=== PATIENT | male | born 1985 | race Two or more races ===

== ENCOUNTER 2024-12-28 23:07 | Inpatient (IN) | payer BC ==
[~2024-12-28] VITALS: Ht 180.3 cm; Wt 99.8 kg
--- NOTE | 2024-12-28 23:19 | NUR ---
SE RECIBE PTE EN AMBULANCIA ALERTA Y ORIENTADO X3 ACOMPANADO DE ROMERO ENRRIQUE. PTE REFIERE HAVEN SUFRIDO SINCOPE EN LA NOCHE DE HOY. SE ABDIRASHID S/V Y SE UBICA.
[2024-12-28] MEDS ORDERED: 0.9 % SODIUM CHLORIDE 1,000 ML IV ONE (23:30)
[2024-12-28] MEDS ORDERED: FAMOtidine 10 MG/ML (4ML VIAL) IV ONE (23:30)
--- NOTE | 2024-12-28 23:35 | NUR ---
SE REALIZA DXT. 161MG/DL 233
--- NOTE | 2024-12-29 00:45 | NUR ---
SE ORIENTA A PTE SOBRE TX MEDICO, ANDREAS REFIERE ENTENDER Y ACEPTAR. SE COLECTAN MUESTRAS DE LABORATORIO BAJO MEDIDAS ASEPTICAS. SE ADMINISTRAN MEDICAMENTOS EJ ORDEN MEDICA. PTE EN ESPERA DE XR Y CT.
[2024-12-29 00:48] LABS: BASO % 0.4 % (0.1-1.2); EOS # 0.03 (0.04-0.54); EOS % 0.4 % (0.7-7.0); LYMPH # 0.57 (1.18-3.74); LYMPH % 7.5 % (19.3-53.1); MEAN PLATELET VOLUME 11.60 fl (9.4-12.4); MONO # 0.50 (0.24-0.82); MONO % 6.6 % (4.7-12.5); NEUT # 6.46 (1.56-6.13); NEUT % 84.8 % (34.0-71.1); RED CELL DISTRIBUTION WIDTH 17.6 % (11.6-14.4)
[2024-12-29 01:24] LABS: COVID-19 AG NEGATIVE (NEGATIVE)
[2024-12-29 01:31] LABS: INR 1.28
[2024-12-29 01:35] LABS: URINE APPEARANCE Clear; URINE BILIRRUBIN Negative (NEGATIVE); URINE BLOOD Small; URINE COLOR Yellow; URINE GLUCOSE Negative (NEGATIVE); URINE KETONE Negative (NEGATIVE); URINE LEUKOCYTE Negative; URINE NITRATE Negative; URINE UROBILINOGEN 1.0 E.U./dl
[2024-12-29 01:36] LABS: ALT/SGPT 46.0 U/L (12-78); AST/SGOT 78.0 U/L (15-37); BILIRUBIN TOTAL 1.07 mg/dL (0.3-1.2); BUN CREA RATIO 7.0 (7.0-25.0); CREATININE SERUM 0.91 mg/dL (0.70-1.30); GFR 92.75; GLOBULINA 4.4 G/DL (2.4-3.5); GLUCOSE FASTING 147.0 mg/dL (65-100); OSMOLALITY SERUM 274.0 MOSM/KG (275-295)
[2024-12-29 01:38] LABS: URINE BACTERIA 58.7 uL (0.0-1933); URINE EPITHELIAL CELLS 11.6 uL (0.0-38.8); URINE RBC 13.3 uL (0.0-20.8); URINE WBC 14.3 uL (0.0-23.2)
[2024-12-29 01:42] LABS: URINE CAST 0.87 uL (0.0-1.40); URINE PROTEIN 100 (NEGATIVE)
[2024-12-29 02:14] LABS: COCAINE NEGATIVE (NEGATIVE); METHADONE NEGATIVE (NEGATIVE); OPIATES NEGATIVE (NEGATIVE); THC ( Cannabinoids) NEGATIVE (NEGATIVE)
[2024-12-29] MEDS ORDERED: ASPIRIN 325 MG TABLET PO STA (05:37)
[2024-12-29] MEDS ORDERED: TICAGRELOR 90 MG TABLET PO STA (05:39)
[2024-12-29] MEDS ORDERED: NITROGLYCERIN 250 ML IV SCH (05:45)
--- NOTE | 2024-12-29 06:04 | NUR ---
PACIENTE ALERTA Y ORIENTADO X3, REUBICADO EN UNIDAD DE ICU-2 BJAO MONITOREO CARDIACO Y OXIMETRIA PULSO. SE ORIENTA SOBRE TX MEDICO EL CUAL INDICA ENTENDER Y ACEPTAR. REALIZA OTRO ACCESO VENOSO Y SE COLOCA TRIDIL A 3 ML/HR.
--- NOTE | 2024-12-29 07:18 | NUR ---
SE RECIBE A PACIENTE ALERTA Y ORIENTADA X3 EN AREA DE CRITICO CONECTADO A MONITOR CARDIACO Y OXIMETRIA CONTINUA. CANALIZADO CON #20 X2 EN RT ARM, PATENTES, LIBRES DE EDEMA Y ERITEMA Y BAJANDO 0.9NSS A 120ML/HR Y TRIDIL 50/250 A 3ML/HR. PACIENTE SE MANTIENE EN CAMA A NIVEL DE PISO JUNTO CON BARRANDAS ELEVADAS. PENDIENTE A CONSULTA CON MEDICINA INTERNA.
[2024-12-29] MEDS ORDERED: NITROGLYCERIN IN 5 % DEXTROSE 250 ML IV SCH (07:45)
[2024-12-29 15:30] VITALS: BP 143/78; O2SAT 97
--- NOTE | 2024-12-29 15:32 | NUR ---
PTE ALERTA Y ORIENTADO X 3 ESFERAS EN CAMA CON BARANDAS ELEVADAS,CONECTADO A MONITOR Y OXIMETRIA,PTE EN COMPANIA DE FAMILIAR,SE LE ORIENTA SOBRE PROTOCOLO DE AREA Y SE ENVIA A AIME DE ESPERA.PTE CHERRIE DE DOLOR Y SIN FALTA DE AIRE,AREA DE VENOPUNCION PATENTE Y CHERRIE DE EDEMA CON DRIP DE TRIDIL @ 7ML/HR POR IVPUMP.SE DANYELLE BAJO OBSERVACION POR CAMBIOS Y PENDIENTE A EVALAUCION DE MEDICINA INTERNA.
[2024-12-29] MEDS ORDERED: ASPIRIN 81 MG TABLET.EC PO SCH (17:10)
[2024-12-29] MEDS ORDERED: ATORVASTATIN CALCIUM 40 MG TABLET PO SCH (17:10)
[2024-12-29] MEDS ORDERED: ENOXAPARIN SODIUM 40 MG/0.4 ML SYRINGE SUBCUTANEO SCH (17:13)
[2024-12-29] MEDS ORDERED: 0.9 % SODIUM CHLORIDE 1,000 ML IV SCH (17:15)
--- NOTE | 2024-12-29 17:40 | NUR ---
PTE EVALUADO POR MEDICINA INTERNA. SE LE ORIENTA SOBRE PROCESO DE ADMISION Y TX MEDICO.PTE REFIERE ENTENDER Y QUE NO DESEA QUEDARSE ADMITIDO PORQUE NO TIENE [place] BUENA CAMA NI ALMOHADAS,SE LE ORIENTA Y SE LE EDDIE EL DOCUMENTO DE LAMA,REFIERE QUE LO DISCUTIRA CON FAMILIAR.
== END 2024-12-29 18:00 | disposition left against medical advice (07) | DRG 100 ==
LOC: ER 23:07 → MEDJ 12-29 17:51
PROVIDERS: General Practice; ADMIT Student in an Organized Health Care Education/Training Program; ATTEND Student in an Organized Health Care Education/Training Program
PROC: B020ZZZ Computerized Tomography (CT Scan) of Brain (ICD-10-PCS; principal; 2024-12-29)
DX: R56.9 Unspecified convulsions (principal); R40.20 Unspecified coma; Z53.29 Procedure and treatment not carried out because of patient's decision for other reasons